=== PATIENT | male | born 1995 | race African-American/Black ===

== ENCOUNTER 2020-03-03 06:58 | Inpatient (IN) | payer MEDICAID ==
[~2020-03-03] VITALS: Ht 182.9 cm; Wt 156.5 kg
[2020-03-03 08:18] LABS: CHLORIDE 109 mEq/L (98-107); CLARITY URINE CLEAR (CLEAR); COLOR URINE YELLOW (YELLOW); KETONES URINE NEGATIVE (NEGATIVE); LEUKOCYTE ESTERASE URINE NEGATIVE (NEGATIVE); NITRITE URINE NEGATIVE (NEGATIVE); OCCULT BLOOD URINE NEGATIVE (NEGATIVE); PROTEIN URINE NEGATIVE (NEGATIVE); SPECIFIC GRAVITY URINE 1.029 (1.005-1.030); UROBILINOGEN URINE 0.2 E.U./dL (0.2-1.0)
[2020-03-03 08:20] LABS: BASOPHILS % 0.9 % (0.0-2.0); HEMATOCRIT. 40.4 % (42.0-52.0); HEMOGLOBIN. 13.3 g/dL (14.0-18.0); LYMPHOCYTES % 18.4 % (20.0-50.0); MEAN CORPUSCULAR HEMOGLOBIN 25.4 pg (28.0-32.0); MEAN CORPUSCULAR VOLUME 77.2 fL (80.0-94.0); MEAN PLATELET VOLUME 8.8 fl (7.4-10.4); MONOCYTES % 5.2 % (2.0-8.0); NEUTROPHILS % 74.5 % (40.0-76.0); PLATELET 234 x1000/uL (130-400); RED BLOOD CELL COUNT 5.24 mill/uL (4.7-6.1); RED CELL DISTRIBUTION WIDTH 15.3 % (11.6-14.6)
[2020-03-03 08:22] LABS: PROTHROMBIN TIME 10.9 sec (9.6-11.0)
[2020-03-03] MEDS ORDERED: ACETAMINOPHEN 325MG TABLET PO PRN (13:30)
[2020-03-03] MEDS ORDERED: ONDANSETRON HCL 4MG/2ML INJ IV PRN (13:30)
[2020-03-03] MEDS ORDERED: IOHEXOL-300 100 ML BOTTLE ONE (14:29)
[2020-03-03] MEDS: PANTOPRAZOLE SODIUM 40 MG/VIAL IV SCH ×2 (15:05→20:42)
[2020-03-03 15:58] VITALS: BP 118/66
[2020-03-03 16:00] VITALS: BP 141/70
[2020-03-03 19:52] LABS: *AMPHETAMINES SCREEN URINE NEGATIVE (NEGATIVE); *BARBITURATES SCREEN URINE NEGATIVE (NEGATIVE); *BENZODIAZEPINES SCREEN URINE NEGATIVE (NEGATIVE); *COCAINE SCREEN URINE NEGATIVE (NEGATIVE); CANNABINOID URINE SCREEN NEGATIVE (NEGATIVE); METHADONE URINE SCREEN NEGATIVE (NEGATIVE); OPIATES URINE SCREEN NEGATIVE (NEGATIVE); PHENCYCLIDINE URINE SCREEN NEGATIVE (NEGATIVE)
[2020-03-03 20:00] VITALS: BP 118/68
[2020-03-04] VITALS: BP 118/59
[2020-03-04 04:00] VITALS: BP 114/58
[2020-03-04 06:40] LABS: BASOPHILS % 0.9 % (0.0-2.0); EOSINOPHILS % 1.5 % (0.0-5.0); HEMATOCRIT. 36.9 % (42.0-52.0); HEMOGLOBIN. 11.8 g/dL (14.0-18.0); LYMPHOCYTES % 20.2 % (20.0-50.0); MEAN CORPUSCULAR HEMOGLOBIN 24.7 pg (28.0-32.0); MEAN CORPUSCULAR VOLUME 77.2 fL (80.0-94.0); MEAN PLATELET VOLUME 8.6 fl (7.4-10.4); MONOCYTES % 6.4 % (2.0-8.0); PLATELET 223 x1000/uL (130-400); RED BLOOD CELL COUNT 4.78 mill/uL (4.7-6.1); RED CELL DISTRIBUTION WIDTH 15.3 % (11.6-14.6)
[2020-03-04 06:55] LABS: CHLORIDE 105 mEq/L (98-107)
[2020-03-04 07:05] LABS: LDL CHOLESTEROL 109 mg/dL (5-100); TOTAL IRON BINDING CAPACITY 312 ug/dL (250-450)
[2020-03-04 07:07] LABS: HDL CHOLESTEROL 29 mg/dL (40-59)
[2020-03-04 08:00] VITALS: BP 103/65
[2020-03-04] MEDS: PANTOPRAZOLE SODIUM 40 MG/VIAL IV SCH ×2 (09:48→20:20)
[2020-03-04 12:00] VITALS: BP 117/72
[2020-03-04 16:00] VITALS: BP 119/65
[2020-03-04] MEDS: FERROUS SULFATE 325MG TABLET PO SCH (18:02)
[2020-03-04 20:00] VITALS: BP 111/69
[2020-03-05 00:18] VITALS: BP 129/56
[2020-03-05 04:00] VITALS: BP 99/51
[2020-03-05 07:29] LABS: INR 1.1; PARTIAL THROMBOPLASTIN TIME 28.3 sec (23.4-31.0); PROTHROMBIN TIME 11.2 sec (9.6-11.0)
[2020-03-05 07:37] LABS: BASOPHILS % 0.5 % (0.0-2.0); EOSINOPHILS % 1.7 % (0.0-5.0); HEMATOCRIT. 33.3 % (42.0-52.0); HEMOGLOBIN. 10.9 g/dL (14.0-18.0); LYMPHOCYTES % 21.1 % (20.0-50.0); MEAN CORPUSCULAR HEMOGLOBIN 25.1 pg (28.0-32.0); MEAN CORPUSCULAR VOLUME 77.1 fL (80.0-94.0); MEAN PLATELET VOLUME 8.7 fl (7.4-10.4); MONOCYTES % 7.3 % (2.0-8.0); NEUTROPHILS % 69.4 % (40.0-76.0); PLATELET 236 x1000/uL (130-400); RED BLOOD CELL COUNT 4.32 mill/uL (4.7-6.1); RED CELL DISTRIBUTION WIDTH 15.3 % (11.6-14.6)
[2020-03-05 08:00] VITALS: BP 127/64
[2020-03-05 08:30] LABS: CHLORIDE 106 mEq/L (98-107)
[2020-03-05] MEDS: FERROUS SULFATE 325MG TABLET PO SCH ×3 (08:35→16:50)
[2020-03-05] MEDS: PANTOPRAZOLE SODIUM 40 MG/VIAL IV SCH ×2 (08:35→20:00)
[2020-03-05 12:00] VITALS: BP 117/70
[2020-03-05 16:00] VITALS: BP 131/75
[2020-03-05] MEDS ORDERED: PROPOFOL 200MG/20ML VIAL IV ONE (17:20)
[2020-03-05] MEDS ORDERED: MEPERIDINE HCL/PF 25MG/ML CPJ IV PRN (17:45)
[2020-03-05] MEDS ORDERED: ONDANSETRON HCL 4MG/2ML INJ IV PRN (17:45)
[2020-03-05] MEDS ORDERED: LABETALOL 5MG/ML SYR 20 MG/4 ML SYRINGE IV PRN (17:45)
[2020-03-05] MEDS ORDERED: HYDROMORPHONE HCL/PF 2MG/ML CPJ IV PRN (17:45)
[2020-03-05 20:00] VITALS: BP 106/73
[2020-03-06] VITALS: BP 105/56
[2020-03-06 08:00] VITALS: BP 125/71
[2020-03-06] MEDS: FERROUS SULFATE 325MG TABLET PO SCH ×2 (08:50→11:52)
[2020-03-06] MEDS: PANTOPRAZOLE SODIUM 40 MG/VIAL IV SCH (08:50)
[2020-03-06] MEDS ORDERED: OMEP20CA14 MT (11:06)
[2020-03-06 11:59] VITALS: BP_SYST 134; BP_SYST 138; BP_DIAS 73; BP_DIAS 78
== END 2020-03-06 12:18 | disposition home or self-care (01) | DRG 241 ==
LOC: ER 06:58 → 6EST 11:01 → EDBEDREQ 11:05 → EDBEDREQTM 11:05 → ENRESERV 14:51
PROVIDERS: ADMIT Internal Medicine; ATTEND Internal Medicine
PROC: 0DB68ZX Excision of Stomach, Via Natural or Artificial Opening Endoscopic, Diagnostic (ICD-10-PCS; principal; 2020-03-05)
DX: K29.61 Other gastritis with bleeding (principal); K92.1 Melena; E87.8 Other disorders of electrolyte and fluid balance, not elsewhere classified; K76.0 Fatty (change of) liver, not elsewhere classified; D50.9 Iron deficiency anemia, unspecified; Z20.828 Contact with and (suspected) exposure to other viral communicable diseases; E66.09 Other obesity due to excess calories; Z68.42 Body mass index [BMI] 45.0-49.9, adult
CPT/HCPCS: 36415; 74178; 80048; 80053; 80061; 80305; 81003; 82270; 82607; 82728; 82746; 83036; 83540; 83550; 85025; 87426; 88305; 88313; 93005; 99285; C9113; J2704; Q9967